=== PATIENT | female | born 1990 | race Hispanic/Latino ===

== ENCOUNTER 2025-04-07 01:12 | Emergency (ER) | payer OTHER ==
[2025-04-07] MEDS ORDERED: HYDROMORPHONE HCL 0.5 MG/0.5 ML INJ ONE (01:58)
[2025-04-07] MEDS ORDERED: ONDANSETRON 4 MG/2 ML VIAL ONE (01:58)
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
--- NOTE | 2025-04-07 03:28 | RAD REPORT ---
PROCEDURE: CT CERVICAL SPINE WITHOUT IV CONTRAST INDICATION: Pain. COMPARISON: CT cervical spine 12/11/2017 TECHNIQUE: CT images of cervical spine were obtained without contrast. Multiplanar reformats were pro vided. Dose lowering technique(s) such as automated exposure control, iterative reconstruction, mA and/or KV adjustment for patient's size was utilized for this examination. FINDINGS: ALIGNMENT: Normal lordosis of the cervical spine. BONES: No acute fractures. No compression deformity. No spondylolisthesis. SPONDYLOSIS: Unremarkable. POSTERIOR FOSSA: Unremarkable. SOFT TISSUES: Unremarkable. LUNG APICES: Clear. OTHER: None. IMPRESSION: No acute finding in CT cervical spine. Electronically signed by: Mariella Celaya MD 04/07/2025 03:24 AM CDT RP Due to temporary technical issues with the PACS/[employer] reporting system, reports are being adrienne d by the in-house radiologist without review as a courtesy to ensure prompt reporting the interpreting radiologist is fully responsible for the content of the report. Transcribed Date/Time: 04/07/2025 3:28 AM
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
[2025-04-07 04:20] VITALS: TEMP 98.3
[2025-04-07 04:23] VITALS: BP 97/52; O2SAT 100
== END 2025-04-07 04:14 | disposition home or self-care (01) ==
LOC: ER 01:12
DX: G89.11 Acute pain due to trauma (principal)
CPT/HCPCS: 72125; 70498; 96375; 96374; 99284; Q9967; J1171; J2405